=== PATIENT | male | born 1990 | race Caucasian/White ===

== ENCOUNTER 2018-07-08 10:56 | Emergency (ER) | payer MEDICAID, OTHER ==
[~2018-07-08] VITALS: Ht 175.3 cm; Wt 72.7 kg
[~2018-07-08 10:56] MED LIST: CYCL5TAB PO; ONDA4TAB6 PO
[2018-07-08 11:15] VITALS: BP 139/85
[2018-07-08] MEDS ORDERED: lidocaine 1.5% w/epinephrine 1:200,000 10ml vial MPF IJ ONE (12:00)
[2018-07-08] MEDS ORDERED: LIDOcaine 1% w/epiNEPHrine 1:200,000 30ml vial IJ ONE (12:05)
== END 2018-07-08 12:51 | disposition home or self-care (01) ==
LOC: ER 10:57
DX: S61.012A Laceration without foreign body of left thumb without damage to nail, initial encounter (principal); G89.29 Other chronic pain; Z79.899 Other long term (current) drug therapy; W26.8XXA Contact with other sharp object(s), not elsewhere classified, initial encounter; Y93.89 Activity, other specified; Y92.89 Other specified places as the place of occurrence of the external cause; Y99.8 Other external cause status
CPT/HCPCS: 12001; 99283; J3490